=== PATIENT | female | born 1955 | race Hispanic/Latino ===

== ENCOUNTER 2019-12-08 12:04 | Outpatient (CLI) | payer OTHER ==
--- NOTE | 2019-12-08 14:18 | RAD ---
THREE VIEWS LEFT SHOULDER: 12/08/19 HISTORY: Left shoulder pain for several weeks. FINDINGS: Three views of the left shoulder shows no evidence of acute fracture or dislocation. Mild degenerativ e changes are seen in the acromioclavicular and glenohumeral joints. The visualized left thorax is un remarkable. IMPRESSION: Mild left shoulder osteoarthritis without acute osseous abnormality. POS: [facility]
== END 2019-12-08 12:05 | disposition home or self-care (01) ==
LOC: NAV RAD 12:04
PROVIDERS: ATTEND Family Medicine
DX: M25.512 Pain in left shoulder (principal); M19.012 Primary osteoarthritis, left shoulder

== ENCOUNTER 2021-05-20 14:23 | Emergency (ER) | payer MEDICARE ==
[2021-05-20] MEDS ORDERED: Acetaminophen 325 MG TAB ONE (14:59)
== END 2021-05-20 16:20 | disposition home or self-care (01) ==
LOC: NAV ERS 14:23
DX: S62.622A Displaced fracture of middle phalanx of right middle finger, initial encounter for closed fracture (principal); S20.211A Contusion of right front wall of thorax, initial encounter; M19.90 Unspecified osteoarthritis, unspecified site; F17.210 Nicotine dependence, cigarettes, uncomplicated; W20.8XXA Other cause of strike by thrown, projected or falling object, initial encounter
CPT/HCPCS: 94799

== ENCOUNTER 2022-06-07 10:15 | Outpatient (CLI) | payer MEDICARE | END 2022-06-07 10:16 | disposition home or self-care (01) | LOC: NAV RAD 10:15 | PROVIDERS: ATTEND Family Medicine | DX: M47.26 Other spondylosis with radiculopathy, lumbar region (principal) | CPT/HCPCS: 72100 ==

== ENCOUNTER 2022-07-26 10:38 | Outpatient (CLI) | payer MEDICARE, OTHER | END 2022-07-26 10:39 | disposition home or self-care (01) | LOC: NAV RAD 10:38 | PROVIDERS: ATTEND Family Medicine | DX: M25.551 Pain in right hip (principal) | CPT/HCPCS: 72170 ==

== ENCOUNTER 2023-04-11 11:48 | Outpatient (CLI) | payer MEDICARE, OTHER | END 2023-04-11 11:49 | disposition home or self-care (01) | LOC: NAV RAD 11:48 | PROVIDERS: ATTEND Student in an Organized Health Care Education/Training Program | DX: M25.511 Pain in right shoulder (principal) ==

== ENCOUNTER 2025-03-21 14:39 | Outpatient (CLI) | payer MEDICARE | END 2025-03-21 14:40 | disposition home or self-care (01) | LOC: NAV RAD 14:39 | PROVIDERS: ATTEND Family Medicine | DX: M25.531 Pain in right wrist (principal); S52.511A Displaced fracture of right radial styloid process, initial encounter for closed fracture; W19.XXXA Unspecified fall, initial encounter ==